=== PATIENT | female | born 1950 | race Caucasian/White ===

== ENCOUNTER → 2016-10-14 | Outpatient (CLI) | payer MEDICARE ==
[~2016-10-14] MED LIST: ASPI325T PO; ASPI81TA4 PO; ETOD40ERTA PO; METH2.5TA PO; NAPR220C PO; NAPR375T2 PO; NEUR300C PO; NORV5TAB PO; OMEP20TA7 OR; ONETAB35 PO; OYST500T OR; PERC5TAB8 OR; PRED15EL PO; PRED5TA PO; VALE250C2 PO; VIT D 2000 PO; ZOLO50TA OR; [UNRECOGNIZED DRUG - OTHER] PO; biotin PO
[2016-10-14 12:29] LABS: ANION GAP 10 MEQ/L (8-16); BLOOD UREA NITROGEN 16 MG/DL (7-18); CARBON DIOXIDE LEVEL 26 MEQ/L (21-32); CHLORIDE LEVEL 106 MEQ/L (98-107); CREATININE FOR GFR 0.89 MG/DL (0.55-1.02); GLOMERULAR FILTRATION RATE > 60.0 (>45); GLUCOSE, FASTING 98 MG/DL (80-110); SODIUM LEVEL 142 MEQ/L (136-145)
== END ==
LOC: M LAB 11:23
PROVIDERS: ATTEND Nurse Practitioner Family
DX: M81.0 Age-related osteoporosis without current pathological fracture (principal)

== ENCOUNTER → 2017-01-06 | Outpatient (CLI) | payer MEDICARE ==
[2017-01-06 10:25] LABS: ANION GAP 2 MEQ/L (8-16); BLOOD UREA NITROGEN 21 MG/DL (7-18); CALCIUM LEVEL 9.1 MG/DL (8.8-10.2); CARBON DIOXIDE LEVEL 35 MEQ/L (21-32); CHLORIDE LEVEL 105 MEQ/L (98-107); CHOLESTEROL LEVEL 217 MG/DL (<200); CREATININE FOR GFR 0.78 MG/DL (0.55-1.02); GLOMERULAR FILTRATION RATE > 60.0 (>45); GLUCOSE, FASTING 92 MG/DL (80-110); POTASSIUM SERUM 4.3 MEQ/L (3.5-5.1); SODIUM LEVEL 142 MEQ/L (136-145); TRIGLYCERIDES LEVEL 122 MG/DL (<150)
== END ==
LOC: M LAB 09:26
PROVIDERS: ATTEND Neuromusculoskeletal Medicine & OMM
DX: M81.0 Age-related osteoporosis without current pathological fracture (principal)

== ENCOUNTER 2017-01-13 09:14 | Outpatient (CLI) | payer MEDICARE ==
[~2017-01-13] VITALS: Ht 154.9 cm; Wt 51.3 kg
[2017-01-13] MEDS ORDERED: ZOLEDRONIC ACID 5 MG in APPROPRIATE DILUENT 1 EA IV ONE (10:00)
== END 2017-01-13 10:25 | disposition home or self-care (01) ==
LOC: M INFU 09:14
PROVIDERS: ATTEND Family Medicine
DX: M81.8 Other osteoporosis without current pathological fracture (principal); Z88.8 Allergy status to other drugs, medicaments and biological substances; Z88.5 Allergy status to narcotic agent; Z79.899 Other long term (current) drug therapy; Z87.891 Personal history of nicotine dependence
CPT/HCPCS: 96365; J3489

== ENCOUNTER → 2017-02-26 | Outpatient (CLI) | payer MEDICARE ==
--- NOTE | 2017-02-26 11:13 | REP ---
MRI right hand without contrast: History: Right hand tendonitis. The patient reports a bump and pain between the thumb and index finger. No known injury. Comparison right index finger radiographs are from February 18, 2016. 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 Technique: Axial, coronal, and sagittal imaging planes are utilized for T1, T2 and abgizn-ydgxxmd-kpgifqyl imaging. Sequences include spin-echo and gradient echo imaging with and without fat saturation. MRI findings: There is no MR evidence of a soft tissue mass involving the thenar soft tissues. There are subcortical cysts formed including both sides of the first carpometacarpal articulation, the distal navicula and the distal end of the second metacarpal. This is compatible with arthritis associated cyst formation. There is a small cyst in the distal end of the first metacarpal as well. Arthritic changes are seen in the IP, MCP and CUSTODIAL joint of the thumb and to a lesser extent in the PIP joints of the index and long digits. No vascular abnormality is seen. There is some degenerative widening of the navicular lunate consistent with degeneration of this ligament. Impression: No soft tissue mass seen. Arthritic changes in the wrist and hand. Signed by Arron Mo MD 02/26/2017 01:19 P
== END ==
LOC: M RAD 09:22
PROVIDERS: ATTEND Neuromusculoskeletal Medicine & OMM
DX: M77.8 Other enthesopathies, not elsewhere classified (principal)

== ENCOUNTER 2017-03-11 14:01 | Emergency (ER) | payer MEDICARE ==
[~2017-03-11] VITALS: Ht 154.9 cm; Wt 54.4 kg
[~2017-03-11 14:01] MED LIST changes: +ASPI81TA18 PO; -ASPI81TA4 PO; +NAPR-855 PO; -NAPR375T2 PO
[2017-03-11] MEDS ORDERED: tumeric (14:15)
[2017-03-11] MEDS ORDERED: ASPI81CH PO (14:15)
[2017-03-11] MEDS ORDERED: ASPIRIN 81 MG CHEW TABLET PO ONE (14:45)
[2017-03-11 15:25] LABS: BASO % 0.5 % (0.0-1.0); EOS # 0.2 K/mm3 (0.0-0.50); EOS % 2.5 % (0.0-3.0); LARGE UNSTAINED CELL # 0.2 K/mm3 (0.0-0.4); LARGE UNSTAINED CELL % 2.3 % (0.0-4.0); LYMPH # 2.8 K/mm3 (1.5-4.5); LYMPH % 31.1 % (24.0-44.0); MEAN CORPUSCULAR HEMOGLOBIN 33.3 pg (27.0-33.0); MEAN CORPUSCULAR HGB CONC 35.9 g/dl (32.0-36.5); MEAN CORPUSCULAR VOLUME 92.7 fl (80.0-96.0); MONO # 0.6 K/mm3 (0.0-0.8); MONO % 7.5 % (0.0-5.0); NEUTROPHILS # 4.6 K/mm3 (1.8-7.7); PLATELET COUNT, AUTOMATED 243 k/mm3 (150-450); RED CELL DISTRIBUTION WIDTH 12.2 % (11.5-14.5); WHITE BLOOD COUNT 8.2 K/mm3 (4.0-10.0)
[2017-03-11 15:36] LABS: ANION GAP 7 MEQ/L (8-16); BLOOD UREA NITROGEN 18 MG/DL (7-18); CALCIUM LEVEL 8.4 MG/DL (8.8-10.2); CARBON DIOXIDE LEVEL 28 MEQ/L (21-32); CHLORIDE LEVEL 105 MEQ/L (98-107); CREATININE FOR GFR 0.94 MG/DL (0.55-1.02); FREE T4 0.88 NG/DL (0.76-1.46); GLOMERULAR FILTRATION RATE > 60.0 (>45); GLUCOSE, FASTING 121 MG/DL (80-110); MAGNESIUM LEVEL 2.2 MG/DL (1.8-2.4); PHOSPHORUS LEVEL 2.1 MG/DL (2.5-4.9); POTASSIUM SERUM 3.7 MEQ/L (3.5-5.1); SODIUM LEVEL 140 MEQ/L (136-145)
--- NOTE | 2017-03-11 16:30 | REP ---
HISTORY: Chest pain. PRIORS: None. FINDINGS: The superior mediastinal structures are midline. The cardiac silhouette is unremarkable in size, shape and position. The diaphragmatic surfaces of the lungs are regular and the costophrenic angles are clear. The pulmonary riley are clear. The imaged osseous structures are intact. IMPRESSION: There is no acute cardiopulmonary disease. Signed by Tim Pierson DO 03/11/2017 04:37 P
[2017-03-11 21:35] VITALS: BP 120/84
--- NOTE | 2017-03-12 06:00 | ECGEPIP ---
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 RBBB NO PRIORS Electronically Signed On 03-12-2017 6:00:42 EDT by Salomon Lundy
--- NOTE | 2017-03-12 12:16 | ECGEPIP ---
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 RBBB SIMILAR TO PRIOR ON SAME DATE Electronically Signed On 03-12-2017 12:15:56 EDT by Salomon Lundy
== END 2017-03-11 22:00 | disposition home or self-care (01) ==
LOC: M ED 15:42
DX: R00.2 Palpitations (principal); M10.9 Gout, unspecified; M19.90 Unspecified osteoarthritis, unspecified site; Z87.891 Personal history of nicotine dependence; Z79.82 Long term (current) use of aspirin; Z79.899 Other long term (current) drug therapy; Z88.5 Allergy status to narcotic agent; Z88.8 Allergy status to other drugs, medicaments and biological substances

== ENCOUNTER 2017-03-15 08:28 | Outpatient (RCR) | payer MEDICARE ==
[~2017-03-15 08:28] MED LIST changes: +ASPI81CH PO; +tumeric
== END 2017-03-19 | disposition home or self-care (01) ==
LOC: M OT 08:28
PROVIDERS: ATTEND Neuromusculoskeletal Medicine & OMM
DX: M05.741 Rheumatoid arthritis with rheumatoid factor of right hand without organ or systems involvement (principal)
CPT/HCPCS: 97165; G8984; G8985

== ENCOUNTER 2017-03-26 11:59 | Outpatient (RCR) | payer MEDICARE | END 2017-04-19 | LOC: M OT 11:59 | PROVIDERS: ATTEND Neuromusculoskeletal Medicine & OMM | DX: M05.741 Rheumatoid arthritis with rheumatoid factor of right hand without organ or systems involvement (principal) | CPT/HCPCS: 97760; G8984; G8985; G8986 ==

== ENCOUNTER → 2018-05-04 | Outpatient (REF) | payer MEDICARE ==
[2018-05-04 13:51] LABS: TOTAL 25(OH) VITAMIN D 14.5 NG/ML (30.0-100.0)
[2018-05-04 13:58] LABS: ALBUMIN 4.3 GM/DL (3.2-5.2); ALBUMIN/GLOBULIN RATIO 1.34 (1.00-1.93); ALKALINE PHOSPHATASE 55 U/L (45-117); ALT/SGPT 41 U/L (12-78); ANION GAP 7 MEQ/L (8-16); AST/SGOT 21 U/L (7-37); BILIRUBIN,TOTAL 0.5 MG/DL (0.2-1.0); BLOOD UREA NITROGEN 15 MG/DL (7-18); CALCIUM LEVEL 9.4 MG/DL (8.8-10.2); CARBON DIOXIDE LEVEL 27 MEQ/L (21-32); CHLORIDE LEVEL 108 MEQ/L (98-107); CREATININE FOR GFR 0.88 MG/DL (0.55-1.30); GLOMERULAR FILTRATION RATE > 60.0 (>45); GLUCOSE, FASTING 92 MG/DL (70-100); POTASSIUM SERUM 4.2 MEQ/L (3.5-5.1); SODIUM LEVEL 142 MEQ/L (136-145); TOTAL PROTEIN 7.5 GM/DL (6.4-8.2)
== END ==
LOC: M SFHCPLAZ 11:01
DX: M81.0 Age-related osteoporosis without current pathological fracture (principal)
CPT/HCPCS: 80053

== ENCOUNTER 2018-05-30 10:07 | Outpatient (CLI) | payer MEDICARE ==
[2018-05-30] MEDS: ZOLEDRONIC ACID 5 MG in APPROPRIATE DILUENT 1 EA IV (10:50)
== END 2018-05-30 11:35 | disposition home or self-care (01) ==
LOC: M INFU 10:07
DX: M81.0 Age-related osteoporosis without current pathological fracture (principal); M12.9 Arthropathy, unspecified; Z90.710 Acquired absence of both cervix and uterus; Z88.8 Allergy status to other drugs, medicaments and biological substances
CPT/HCPCS: J3489

== ENCOUNTER → 2018-06-17 | Outpatient (CLI) | payer MEDICARE | LOC: M WHC 14:19 | DX: Z12.31 Encounter for screening mammogram for malignant neoplasm of breast (principal); N60.31 Fibrosclerosis of right breast; N60.32 Fibrosclerosis of left breast | CPT/HCPCS: 77067 ==

== ENCOUNTER → 2018-08-04 | Outpatient (CLI) | payer MEDICARE | LOC: M RAD 10:03 | DX: Z12.2 Encounter for screening for malignant neoplasm of respiratory organs (principal); J98.4 Other disorders of lung; Z87.891 Personal history of nicotine dependence | CPT/HCPCS: G0297 ==

== ENCOUNTER → 2018-11-23 | Outpatient (REF) | payer MEDICARE ==
[~2018-11-23] MED LIST changes: -ASPI81TA18 PO; +ASPI81TA52 PO; +METH2.5T48 PO; -METH2.5TA PO; +NAPR250T4 PO; +OMEG1CAP16 PO; +VITA200015 PO
== END ==
LOC: M LAB REF 12:35
PROVIDERS: ATTEND Ophthalmology
DX: H02.834 Dermatochalasis of left upper eyelid (principal); H02.831 Dermatochalasis of right upper eyelid

== ENCOUNTER 2019-03-27 07:56 | Emergency (ER) | payer MEDICARE ==
[~2019-03-27] VITALS: Ht 152.4 cm; Wt 66.1 kg
[~2019-03-27 07:56] MED LIST changes: +ASPI-1 PO; -ASPI325T PO; -ASPI81CH PO; +ASPI81CH49 PO; -PRED15EL PO; +PRED15SO PO
[2019-03-27 07:57] VITALS: BP 127/65
[2019-03-27] MEDS ORDERED: ICAPCAP2 (08:08)
[2019-03-27] MEDS ORDERED: ASPI-264 PO (08:08)
[2019-03-27] MEDS ORDERED: OYST1TAB (08:08)
--- NOTE | 2019-03-27 08:46 | REP ---
Left ankle series: Four views. History: Injury. Comparison left ankle radiographs are from the April 17, 2008. Findings: Four views of the left ankle demonstrate an intact ankle mortise. No fracture is visible. There is mild anterolateral soft tissue swelling. Mild plantar calcaneal spurring is noted. Impression: Heel spur. Anterolateral swelling. No fracture seen. Electronically Signed by Arron Mo MD 03/27/2019 09:33 A
== END 2019-03-27 09:35 | disposition home or self-care (01) ==
LOC: M ED 08:57
DX: M25.472 Effusion, left ankle (principal); W10.9XXA Fall (on) (from) unspecified stairs and steps, initial encounter; Y92.9 Unspecified place or not applicable; Y93.9 Activity, unspecified; M77.30 Calcaneal spur, unspecified foot; Z79.1 Long term (current) use of non-steroidal anti-inflammatories (NSAID); Z79.82 Long term (current) use of aspirin; Z79.899 Other long term (current) drug therapy; Z88.5 Allergy status to narcotic agent; Z88.8 Allergy status to other drugs, medicaments and biological substances

== ENCOUNTER → 2019-03-28 | Outpatient (REF) | payer MEDICARE ==
[~2019-03-28] MED LIST changes: +ASPI-264 PO; +ICAPCAP2; +OYST1TAB
== END ==
LOC: M SFHCPLAZ 17:42
PROVIDERS: ATTEND Dermatology
DX: L60.3 Nail dystrophy (principal)

== ENCOUNTER → 2019-04-25 | Outpatient (REF) | payer MEDICARE ==
[2019-04-25 13:30] LABS: BLOOD UREA NITROGEN 15 MG/DL (7-18); CALCIUM LEVEL 9.1 MG/DL (8.8-10.2); CARBON DIOXIDE LEVEL 28 MEQ/L (21-32); CHLORIDE LEVEL 108 MEQ/L (98-107); CREATININE FOR GFR 0.76 MG/DL (0.55-1.30); GLOMERULAR FILTRATION RATE > 60.0 (>45); GLUCOSE, FASTING 96 MG/DL (70-100); POTASSIUM SERUM 4.2 MEQ/L (3.5-5.1); SODIUM LEVEL 143 MEQ/L (136-145)
== END ==
LOC: M SFHCPLAZ 10:10
PROVIDERS: ATTEND Family Medicine
DX: M81.8 Other osteoporosis without current pathological fracture (principal)

== ENCOUNTER 2019-05-18 09:50 | Outpatient (RCR) | payer MEDICARE | END 2019-05-20 | LOC: M PT 09:50 | PROVIDERS: ATTEND Family Medicine | DX: S93.492D Sprain of other ligament of left ankle, subsequent encounter (principal) | CPT/HCPCS: 97032; 97110; 97162; G0283 ==

== ENCOUNTER 2019-05-30 14:39 | Outpatient (CLI) | payer MEDICARE ==
[~2019-05-30] VITALS: Ht 152.4 cm; Wt 66.0 kg
[2019-05-30 14:50] VITALS: BP 134/77
[2019-05-30] MEDS ORDERED: ZOLEDRONIC ACID 5 MG in APPROPRIATE DILUENT 1 EA IV ONE (15:00)
[2019-05-30] MEDS ORDERED: ASPI325T57 PO (15:31)
[2019-05-30] MEDS ORDERED: FLAX1CAP5 PO (15:33)
[2019-05-30] MEDS ORDERED: PRESCAP PO (15:35)
[2019-05-30] MEDS ORDERED: TUMERIC PO (15:40)
[2019-05-30] MEDS ORDERED: ZOLE5INJ IV (15:41)
[2019-05-30] MEDS ORDERED: AUGM0.05 TOP (15:42)
[2019-05-30 16:15] VITALS: BP 147/88
== END 2019-05-30 16:15 | disposition home or self-care (01) ==
LOC: M INFU 14:39
DX: M81.0 Age-related osteoporosis without current pathological fracture (principal)
CPT/HCPCS: 96365; J3489

== ENCOUNTER 2019-06-01 09:16 | Outpatient (RCR) | payer MEDICARE ==
[~2019-06-01 09:16] MED LIST changes: +ASPI325T57 PO; +AUGM0.05 TOP; +FLAX1CAP5 PO; +PRESCAP PO; +TUMERIC PO; +ZOLE5INJ IV
== END 2019-06-19 ==
LOC: M PT 09:16
PROVIDERS: ATTEND Family Medicine
DX: Z47.89 Encounter for other orthopedic aftercare (principal); S93.492D Sprain of other ligament of left ankle, subsequent encounter
CPT/HCPCS: 97110; 97530; G0283

== ENCOUNTER → 2019-07-07 | Outpatient (CLI) | payer MEDICARE ==
[2019-07-07 11:48] LABS: C REACTIVE PROTEIN QUANTITATIV 0.39 MG/DL (0.00-0.30); RHEUMATOID FACTOR QUANT 14.2 IU/ML (<15.0)
--- NOTE | 2019-07-07 14:15 | REP ---
REASON: Pain and arthritis. AP and lateral views were obtained bilaterally and compared to the prior examination of 09/08/2008. RIGHT HAND: Two views of right hand show marked asymmetric intradigital joint space narrowing with heavy marginal osteophytosis involving interphalangeal joint of the 1st digit, the DIP joints of all digits, particularly the 2nd and 3rd, along with the PIP joints of digits 4 and 5. All this has increased rather markedly from the prior exam. Chronic changes are also seen involving the wrist. There is no evidence of periarticular osteopenia, and there are no ciarra marginal erosions. IMPRESSION: Chronic changes, as described above. LEFT HAND: There is asymmetric intradigital joint space narrowing involving all intradigital joints in all digits, but particularly the interphalageal joint of the 1st digit and the distal interphalangeal joints of the 2nd and 3rd digits, more moderately involving the 5th. The proximal interphalangeal joint of the 4th digit is mostly involved when assessing the PIP joints. Chronic changes seen involving the wrist. The aforementioned findings have increased rather markedly compared to the prior exam. IMPRESSION: Advanced chronic changes, as described above. Electronically Signed by Tim Pierson DO 07/07/2019 04:17 P
== END ==
LOC: M LAB 10:36
PROVIDERS: ATTEND Internal Medicine Rheumatology
DX: M25.742 Osteophyte, left hand (principal); M25.741 Osteophyte, right hand; Z87.39 Personal history of other diseases of the musculoskeletal system and connective tissue

== ENCOUNTER → 2019-07-10 | Outpatient (REF) | payer MEDICARE | LOC: M SFHCPLAZ 09:59 | PROVIDERS: ATTEND Dermatology | DX: L57.0 Actinic keratosis (principal); L57.8 Other skin changes due to chronic exposure to nonionizing radiation ==

== ENCOUNTER → 2019-08-25 | Outpatient (CLI) | payer MEDICARE ==
[2019-08-25 17:35] LABS: BASO # 0.1 10^3/uL (0.0-0.2); BASO % 0.5 % (0.0-1.0); EOS # 0.3 10^3/uL (0.0-0.5); EOS % 2.8 % (0.0-3.0); HEMATOCRIT 44.7 % (36.0-47.0); HEMOGLOBIN 14.7 g/dl (12.0-15.5); LYMPH # 3.5 10^3/uL (1.5-5.0); LYMPH % 38.4 % (24.0-44.0); MEAN CORPUSCULAR HEMOGLOBIN 31.4 pg (27.0-33.0); MEAN CORPUSCULAR HGB CONC 32.9 g/dl (32.0-36.5); MEAN CORPUSCULAR VOLUME 95.5 fl (80.0-96.0); MONO # 0.8 10^3/uL (0.0-0.8); MONO % 8.7 % (0.0-5.0); NEUTROPHILS # 4.5 10^3/uL (1.5-8.5); NEUTROPHILS % 49.3 % (36.0-66.0); PLATELET COUNT, AUTOMATED 243 10^3/uL (150-450); RED BLOOD COUNT 4.68 10^6/uL (4.00-5.40); WHITE BLOOD COUNT 9.2 10^3/uL (4.0-10.0)
[2019-08-25 17:41] LABS: ALBUMIN 4.2 GM/DL (3.2-5.2); ALT/SGPT 39 U/L (12-78); BILIRUBIN,TOTAL 0.6 MG/DL (0.2-1.0); BLOOD UREA NITROGEN 12 MG/DL (7-18); CALCIUM LEVEL 9.6 MG/DL (8.8-10.2); CARBON DIOXIDE LEVEL 27 MEQ/L (21-32); CHLORIDE LEVEL 107 MEQ/L (98-107); CREATININE FOR GFR 0.94 MG/DL (0.55-1.30); FREE T4 0.85 NG/DL (0.76-1.46); GLOMERULAR FILTRATION RATE > 60.0 (>45); GLUCOSE, FASTING 90 MG/DL (70-100); POTASSIUM SERUM 4.1 MEQ/L (3.5-5.1); SODIUM LEVEL 141 MEQ/L (136-145); TOTAL PROTEIN 7.5 GM/DL (6.4-8.2)
== END ==
LOC: M PLALAB 12:45
PROVIDERS: ATTEND Family Medicine
DX: R22.1 Localized swelling, mass and lump, neck (principal); Z79.899 Other long term (current) drug therapy
CPT/HCPCS: 36415; 80053; 84439; 84443; 85025; G0463

== ENCOUNTER → 2019-08-31 | Outpatient (CLI) | payer MEDICARE | LOC: M LAB 10:39 | PROVIDERS: ATTEND Internal Medicine Rheumatology | DX: H04.123 Dry eye syndrome of bilateral lacrimal glands (principal) | CPT/HCPCS: 36415; 83520; 86038; 86225; 86255; G0463 ==

== ENCOUNTER → 2019-09-14 | Outpatient (CLI) | payer MEDICARE ==
[~2019-09-14] MED LIST changes: +ISOVUE-370 76% 100ML VIAL (Q9967) As Ordered ONE
--- NOTE | 2019-09-14 14:47 | REP ---
Clinical: Supraclavicular adenopathy. Technique: Axial contrast enhanced images from the thoracic inlet to the upper abdomen with coronal and sagittal re-formations. Comparison: 08/04/2018. Findings: Visualized portions of the thoracic inlet are normal and there is no evidence for associated adenopathy. The bilateral lung riley are well-aerated and clear. No consolidation. No nodule or mass lesion. No effusion. No pneumothorax. Tracheobronchial tree is patent. No axillary, hilar, or mediastinal adenopathy noted. Mediastinum demonstrates normal thoracic aorta, pulmonary vasculature and heart/pericardium. Surrounding musculoskeletal structures are intact. Impression: Normal contrast enhanced chest CT. Electronically Signed by Quinten Lemus MD 09/14/2019 02:39 P
== END ==
LOC: M RAD 14:04
PROVIDERS: ATTEND Family Medicine
DX: R22.1 Localized swelling, mass and lump, neck (principal)
CPT/HCPCS: 71260; Q9967

== ENCOUNTER → 2019-09-28 | Outpatient (CLI) | payer MEDICARE ==
[~2019-09-28] MED LIST changes: -ISOVUE-370 76% 100ML VIAL (Q9967) As Ordered ONE
--- NOTE | 2019-09-28 14:45 | REP ---
THYROID ULTRASOUND: Real-time sonographic evaluation of the thyroid performed. Right lobe measures 4.7 x 1.6 x 1.4 and left lobe 4.4 x 1.4 x 1.0 cm. Adjacent supraclavicular regions are also scanned as there are reportedly palpable lumps in those regions. No supraclavicular mass is seen. Tiny cyst in the mid right thyroid measures 3.0 mm and a cyst in the left lower pole measures 5.0 mm. IMPRESSION: No supraclavicular soft tissue mass identified sonographically. Tiny cyst in each lobe of thyroid with no solid nodule. Electronically Signed by Rj Montes De Oca MD 09/28/2019 05:44 P
== END ==
LOC: M RAD 13:21
PROVIDERS: ATTEND Family Medicine
DX: E04.1 Nontoxic single thyroid nodule (principal); R22.1 Localized swelling, mass and lump, neck

== ENCOUNTER → 2019-10-04 | Outpatient (CLI) | payer MEDICARE ==
[~2019-10-04] MED LIST changes: +ISOVUE-370 76% 100ML VIAL (Q9967) As Ordered ONE
--- NOTE | 2019-10-05 09:09 | REP ---
INDICATION: Neck swelling PROCEDURE: CT neck with contrast COMPARISON STUDIES: CT chest 09/14/2019 FINDINGS: Oropharynx, nasopharynx, hypopharynx and larynx appear unremarkable. No evidence of lymphadenopathy. Paranasal sinuses and mastoid air cells are clear. No discrete mass lesion, or evidence of infection. There is a calcific density at the right lung apex measures perhaps to 3 mm, may represent a calcified granuloma, is unchanged from comparison study CT chest 09/14/2019. IMPRESSION: No acute findings. No evidence of mass lesion. No evidence of focal infection. Electronically Signed by Joe Parks MD 10/05/2019 09:00 A
== END ==
LOC: M RAD 17:12
PROVIDERS: ATTEND Family Medicine
DX: R22.1 Localized swelling, mass and lump, neck (principal)
CPT/HCPCS: 70491; Q9967

== ENCOUNTER → 2019-11-03 | Outpatient (CLI) | payer MEDICARE ==
[~2019-11-03] MED LIST changes: -ISOVUE-370 76% 100ML VIAL (Q9967) As Ordered ONE
--- NOTE | 2019-11-03 11:30 | REPPI ---
Clinical: Pain. Technique: Neutral and frog lateral views of the left hip. Findings: Subtle increase sclerosis to the acetabular roof with joint space narrowing noted. No further arthritic changes are appreciated. No acute fracture dislocation. Impression: Essentially age-related findings. Electronically Signed by Quinten Lemus MD 11/03/2019 11:22 A
--- NOTE | 2019-11-03 11:32 | REPPI ---
Clinical: Pain. Technique: AP and frog lateral views of the left femur. Findings: Left hip demonstrates age-related changes with minimal joint space narrowing. Evidence for prior knee replacement. No fracture or dislocation. No significant osteoarthritic findings. Calcified phleboliths noted along the lateral aspect of the proximal thigh. Impression: Essentially age-appropriate examination. Left knee replacement. Electronically Signed by Quinten Lemus MD 11/03/2019 11:23 A
== END ==
LOC: M PLAIMG 11:04
PROVIDERS: ATTEND Family Medicine
DX: I87.8 Other specified disorders of veins (principal); M79.605 Pain in left leg; Z96.652 Presence of left artificial knee joint
CPT/HCPCS: 73502; 73552; G0463

== ENCOUNTER → 2020-02-23 | Outpatient (REF) | payer MEDICARE ==
[2020-02-23 13:57] LABS: HEMOGLOBIN 14.1 g/dl (12.0-15.5); MEAN CORPUSCULAR HEMOGLOBIN 32.6 pg (27.0-33.0); MEAN CORPUSCULAR HGB CONC 34.4 g/dl (32.0-36.5); MEAN CORPUSCULAR VOLUME 94.7 fl (80.0-96.0); PLATELET COUNT, AUTOMATED 253 10^3/uL (150-450); RED BLOOD COUNT 4.33 10^6/uL (4.00-5.40); WHITE BLOOD COUNT 7.7 10^3/uL (4.0-10.0)
[2020-02-23 14:04] LABS: H PYLORI QUALITATIVE IgG NEGATIVE (NEGATIVE)
== END ==
LOC: M SFHCPLAZ 11:19
PROVIDERS: ATTEND Family Medicine
DX: R68.81 Early satiety (principal); R06.00 Dyspnea, unspecified
CPT/HCPCS: 36415; 85027; 86677; G0463

== ENCOUNTER → 2020-04-26 | Outpatient (REF) | payer MEDICARE ==
[2020-06-12 04:16] LABS: BLOOD UREA NITROGEN 12 MG/DL (7-18); CARBON DIOXIDE LEVEL 29 MEQ/L (21-32); CHLORIDE LEVEL 108 MEQ/L (98-107); CREATININE FOR GFR 0.96 MG/DL (0.55-1.30); GLOMERULAR FILTRATION RATE > 60.0 (>45); GLUCOSE, FASTING 106 MG/DL (70-100); POTASSIUM SERUM 4.1 MEQ/L (3.5-5.1); SODIUM LEVEL 141 MEQ/L (136-145)
== END ==
LOC: M SFHCPLAZ 12:02
PROVIDERS: ATTEND Family Medicine
DX: I67.1 Cerebral aneurysm, nonruptured (principal)

== ENCOUNTER → 2020-06-25 | Outpatient (CLI) | payer MEDICARE ==
[~2020-06-25] MED LIST changes: +ISOVUE-370 76% 100ML VIAL As Ordered ONE
--- NOTE | 2020-06-25 11:08 | REPVR ---
PROCEDURE INFORMATION: Exam: CT Angiography Head With Contrast Exam date and time: 06/25/2020 9:40 AM Age: 69 years old Clinical indication: Condition or disease; Aneurysm, cerebral; Additional info: Cerebral aneurysm TECHNIQUE: Imaging protocol: Computed tomography angiography of the head with intravenous contrast. 3D rendering (Not supervised by radiologist): MIP and/or 3D reconstructed images were created by the technologist. Radiation optimization: All CT scans at this facility use at least one of these dose optimization techniques: automated exposure control; mA and/or kV adjustment per patient size (includes targeted exams where dose is matched to clinical indication); or iterative reconstruction. Contrast material: ISO 370; Contrast volume: 75 ml; Contrast route: INTRAVENOUS (IV); COMPARISON: Thyroid, ST head+neck US 09/28/2019 1:38 PM FINDINGS: ANTERIOR CIRCULATION: Right internal carotid artery: Unremarkable. Intracranial segment is patent with no significant stenosis. No aneurysm. Right middle cerebral artery: Unremarkable. No occlusion or significant stenosis. No aneurysm. Right anterior cerebral artery: Unremarkable. No occlusion or significant stenosis. No aneurysm. Left internal carotid artery: There is a 5 mm saccular aneurysm arising from the lateral margin of the right proximal to mid cavernous carotid artery. An additional tiny 2 mm aneurysm arises from the medial margin of the right proximal to mid cavernous segment. Left middle cerebral artery: Unremarkable. No occlusion or significant stenosis. No aneurysm. Left anterior cerebral artery: Unremarkable. No occlusion or significant stenosis. No aneurysm. POSTERIOR CIRCULATION: Right vertebral artery: Unremarkable. No occlusion or significant stenosis. No aneurysm. Left vertebral artery: Unremarkable. No occlusion or significant stenosis. No aneurysm. Basilar artery: Unremarkable. No occlusion or significant stenosis. No aneurysm. Right posterior cerebral artery: Unremarkable. No occlusion or significant stenosis. No aneurysm. Left posterior cerebral artery: Unremarkable. No occlusion or significant stenosis. No aneurysm. Brain: No definite mass, mass effect, or midline shift. Cerebral ventricles: Normal. No ventriculomegaly. Bones/joints: Unremarkable. No acute fracture. Soft tissues: Unremarkable. 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 Additional tiny 2 mm aneurysm arises from the medial margin. Electronically signed by: Margot Francisco On 06/25/2020 11:08:03 AM
== END ==
LOC: M RAD 08:51
PROVIDERS: ATTEND Family Medicine
DX: I72.0 Aneurysm of carotid artery (principal)
CPT/HCPCS: 70496; Q9967

== ENCOUNTER → 2021-04-07 | Outpatient (REF) | payer MEDICARE ==
[~2021-04-07] MED LIST changes: -ISOVUE-370 76% 100ML VIAL As Ordered ONE; +NAPR-849 PO; -NAPR250T4 PO
== END ==
LOC: M SFHCPLAZ 10:52
PROVIDERS: ATTEND Family Medicine
DX: Z13.1 Encounter for screening for diabetes mellitus (principal); Z13.220 Encounter for screening for lipoid disorders

== ENCOUNTER → 2021-04-14 | Outpatient (CLI) | payer MEDICARE ==
--- NOTE | 2021-04-14 12:05 | DEXAMM ---
INDICATION: M81.8 OTHER OSTEOPOROSIS. COMPARISON: Most recent comparison study is from April 10, 2019.. TECHNIQUE: Bone density was measured using dual-energy x-ray absorptionmetry (DEXA). FINDINGS: AP SPINE L1-L4 BMD 0.835 g/cm2 Young Adult T-Score -2.9 Age Matched Z-Score -1.2. LT FEMUR, TOTAL BMD 0.762 g/cm2 Young Adult T-Score -1.9 Age Matched Z-Score -0.5. LT NECK BMD 0.741 g/cm2 Young Adult T-Score -2.1 Age Matched Z-Score -0.5. RT FEMUR, TOTAL BMD 0.739 g/cm2 Young Adult T-Score -2.1 Age Matched Z-Score -0.7. RT NECK BMD 0.706 g/cm2 Young Adult T-Score -2.4 Age Matched Z-Score -0.7. IMPRESSION: There is osteoporosis of the spine. There is low bone density of the left hip. There is low bone density of the right hip. The density of the spine has decreased 6.1% since the initial exam on September 18, 2003. The density of the spine increased 1.8% since most recent exam on April 10, 2019. The density of the left hip has decreased 3.9% since initial exam on September 18, 2003. The density of the left hip has decreased 0.7% since most recent exam on April 10, 2019. The density of the right hip has decreased 10.6% since the initial exam on September 18, 2003. The density of the right hip has decreased 1.5% since the most recent exam on April 10, 2019. FOLLOW-UP: Recommendation for the next bone density exam: 2 years. <Electronically signed by Antelmo Mo > 04/14/21 [id number]
== END ==
LOC: M WHC 09:56
PROVIDERS: ATTEND Family Medicine
DX: M81.8 Other osteoporosis without current pathological fracture (principal); M85.851 Other specified disorders of bone density and structure, right thigh; M85.852 Other specified disorders of bone density and structure, left thigh

== ENCOUNTER 2021-04-18 07:50 | Outpatient (RCR) | payer MEDICARE | END 2021-04-19 | disposition still patient (30) | LOC: M PT 07:50 | PROVIDERS: ATTEND Family Medicine | DX: M54.31 Sciatica, right side (principal) ==

== ENCOUNTER → 2021-05-05 | Outpatient (CLI) | payer MEDICARE ==
--- NOTE | 2021-05-05 10:19 | REP ---
INDICATION: LUNG CANCER SCREENING- LABS AFTER. COMPARISON: Multiple the latest 09/14/[address] of the chest after intravenous contrast administration TECHNIQUE: Axial noncontrast images from the thoracic inlet to the upper abdomen using low-dose lung screening technique (LDCT). As per the protocol only lung window images were sent to the read station for interpretation. FINDINGS: There are no new abnormal nodules, masses, or opacities. Subtle areas of pleural thickening are again seen posteriorly in the left lower lobe. Once again, there is an incidental calcified granuloma in the right upper lobe. There are calcified lymph nodes status quo. The imaged upper abdomen and imaged osseous structures are grossly unchanged. IMPRESSION: Stable lung rads category 2 low-dose screening CT examination of the lungs. Follow-up is recommended as per the revised Fleischner society criteria. <Electronically signed by Tim Pierson > 05/05/21 [id number]
[2021-05-05 11:10] LABS: HEMOGLOBIN A1c 5.2 %
[2021-05-05 11:14] LABS: CHOLESTEROL RISK RATIO 5.547 (<5)
== END ==
LOC: M RAD 09:33
PROVIDERS: ATTEND Family Medicine
DX: Z13.1 Encounter for screening for diabetes mellitus (principal); Z13.220 Encounter for screening for lipoid disorders; Z12.2 Encounter for screening for malignant neoplasm of respiratory organs; R91.8 Other nonspecific abnormal finding of lung field; Z79.82 Long term (current) use of aspirin; Z79.899 Other long term (current) drug therapy

== ENCOUNTER → 2021-05-29 | Outpatient (CLI) | payer MEDICARE ==
[2021-05-29 11:34] LABS: BILIRUBIN,DIRECT 0.1 MG/DL (0.0-0.2); BILIRUBIN,TOTAL 0.5 MG/DL (0.2-1.0); CHOLESTEROL RISK RATIO 4.522 (<5); TOTAL PROTEIN 6.9 GM/DL (6.4-8.2)
== END ==
LOC: M LAB 09:54
PROVIDERS: ATTEND Family Medicine
DX: Z13.220 Encounter for screening for lipoid disorders (principal); Z79.899 Other long term (current) drug therapy

== ENCOUNTER → 2021-06-02 | Outpatient (CLI) | payer MEDICARE ==
--- NOTE | 2021-06-02 10:20 | REPMRS ---
Patient History The patient states she has not had a clinical breast exam in over a year. Family history of colorectal cancer at age 75 in father, breast cancer at age 40 in maternal cousin. Patient states no breast complaints today. Patient has signed MRS History Sheet. Digital Woman Screen Mammo: June 02, 2021 - Exam #: [id number] Bilateral CC and MLO view(s) were taken. Technologist: Giovanna Dukes, Technologist Prior study comparison: June 17, 2018, bilateral digital woman screen mammo performed at [facility]. December 25, 2015, bilateral digital mammo screening bilat, performed at [facility]. FINDINGS: There are scattered fibroglandular densities. Screening. Digital screening (2D) mammography was performed bilaterally in the CC and MLO projections. Additionally, breast tomosynthesis (3D mammography) was performed bilaterally in the CC and MLO projections. Todays exam was compared to the prior exam/exams. By history, the patient has no complaints of a palpable breast abnormality or other significant breast complaints. The breasts are unchanged in size and shape. There are no airam-soft tissue densities or spiculated masses. There is no internal architectural distortion. Once again, stable benign appearing calcifications are seen.There are no suspicious airam-calcific clusters. Skin thickening or nipple retraction is not present. IMPRESSION: BI-RADS Category 2- Benign Findings. There is no evidence of malignant alteration of the breasts. Followup examination recommended in one year. The Volpara volumetric breast density category is B, there are scattered areas of fibroglandular densities. This mammogram was read [facility],an FDA approved computer aided detection system for mammography. The lifetime Tyrer-Cuzick score is 4.3 % Negative x-ray reports should not delay surgical consultation if a dominant or clinically suspicious mass is present. Not all breast cancers can be identified by mammography. Therefore, we recommend that you continue to perform regular breast self-examination and physical examination and then promptly contact your physician of any concerns or changes. Adenosis and dense breasts may obscure an underlying neoplasm. Assessment: BI-RADS/ACR category 2 mammogram. Benign Findings. Recommendation Routine screening mammogram of both breasts in 1 year. Electronically Signed By: Tim Pierson DO 06/02/21 1014
== END ==
LOC: M WHC 09:21
PROVIDERS: ATTEND Family Medicine
DX: Z12.31 Encounter for screening mammogram for malignant neoplasm of breast (principal)

== ENCOUNTER → 2021-09-10 | Outpatient (CLI) | payer MEDICARE | LOC: M LABSMTC 11:10 | PROVIDERS: ATTEND Pediatrics | DX: Z20.822 Contact with and (suspected) exposure to COVID-19 (principal) | CPT/HCPCS: C9803; U0003 ==

== ENCOUNTER → 2022-03-19 | Outpatient (CLI) | payer MEDICARE | LOC: M RAD 10:26 | PROVIDERS: ATTEND Student in an Organized Health Care Education/Training Program | DX: M71.22 Synovial cyst of popliteal space [Baker], left knee (principal); M25.562 Pain in left knee ==

== ENCOUNTER → 2022-04-23 | Outpatient (CLI) | payer MEDICARE | LOC: M PLAIMG 15:08 | PROVIDERS: ATTEND Student in an Organized Health Care Education/Training Program | DX: M17.11 Unilateral primary osteoarthritis, right knee (principal); M19.042 Primary osteoarthritis, left hand ==

== ENCOUNTER → 2022-05-19 | Outpatient (CLI) | payer MEDICARE | LOC: M SOG 08:46 | PROVIDERS: ATTEND Orthopaedic Surgery Hand Surgery | DX: M19.031 Primary osteoarthritis, right wrist (principal); M19.032 Primary osteoarthritis, left wrist; G56.03 Carpal tunnel syndrome, bilateral upper limbs ==

== ENCOUNTER → 2022-05-21 | Outpatient (CLI) | payer MEDICARE | LOC: M SOG 08:38 | PROVIDERS: ATTEND Orthopaedic Surgery Adult Reconstructive Orthopaedic Surgery | DX: M25.561 Pain in right knee (principal); M17.12 Unilateral primary osteoarthritis, left knee ==

== ENCOUNTER → 2022-05-29 | Outpatient (CLI) | payer MEDICARE ==
[2022-05-29 13:48] LABS: HEMOGLOBIN A1c 5.2 %
[2022-05-29 13:49] LABS: ALBUMIN 3.7 GM/DL (3.2-5.2); ALT/SGPT 23 U/L (12-78); BILIRUBIN,TOTAL 0.5 MG/DL (0.2-1.0); BLOOD UREA NITROGEN 15 MG/DL (7-18); CARBON DIOXIDE LEVEL 28 MEQ/L (21-32); CHLORIDE LEVEL 109 MEQ/L (98-107); CHOLESTEROL LEVEL 211 MG/DL (<200); CHOLESTEROL RISK RATIO 3.767 (<5); CREATININE FOR GFR 0.76 MG/DL (0.55-1.30); GLOMERULAR FILTRATION RATE > 60.0 (>39); GLUCOSE, FASTING 85 MG/DL (70-100); HDL CHOLESTEROL 56 MG/DL (>40); LDL CHOLESTEROL 88 MG/DL (<100); NON-HDL-C 155 MG/DL; POTASSIUM SERUM 4.1 MEQ/L (3.5-5.1); SODIUM LEVEL 140 MEQ/L (136-145); TOTAL PROTEIN 6.3 GM/DL (6.4-8.2); TRIGLYCERIDES LEVEL 336 MG/DL (<150)
== END ==
LOC: M LAB 11:58
PROVIDERS: ATTEND Student in an Organized Health Care Education/Training Program
DX: I67.1 Cerebral aneurysm, nonruptured (principal); Z13.1 Encounter for screening for diabetes mellitus; Z79.899 Other long term (current) drug therapy

== ENCOUNTER → 2022-06-11 | Outpatient (CLI) | payer MEDICARE ==
[~2022-06-11] MED LIST changes: +ISOVUE-370 76% 100ML VIAL As Ordered ONE
[2022-06-11 11:18] LABS: CHOLESTEROL RISK RATIO 3.775 (<5)
== END ==
LOC: M RAD 09:32
PROVIDERS: ATTEND Student in an Organized Health Care Education/Training Program
DX: I67.1 Cerebral aneurysm, nonruptured (principal); Z12.2 Encounter for screening for malignant neoplasm of respiratory organs
CPT/HCPCS: 36415; 70496; 71271; 80061; Q9967

== ENCOUNTER → 2022-10-13 | Outpatient (CLI) | payer MEDICARE ==
[~2022-10-13] MED LIST changes: -ISOVUE-370 76% 100ML VIAL As Ordered ONE
[2022-10-13 09:35] LABS: ALBUMIN 4.2 G/DL (3.2-5.2); BILIRUBIN,DIRECT 0.3 MG/DL (<0.4); BILIRUBIN,TOTAL 0.9 MG/DL (0.3-1.2); TOTAL PROTEIN 6.7 G/DL (5.7-8.2)
== END ==
LOC: M LAB 08:02
PROVIDERS: ATTEND Student in an Organized Health Care Education/Training Program
DX: E78.2 Mixed hyperlipidemia (principal)

== ENCOUNTER → 2022-10-13 | Outpatient (CLI) | payer MEDICARE | LOC: M RAD 07:52 | PROVIDERS: ATTEND Student in an Organized Health Care Education/Training Program | DX: N28.1 Cyst of kidney, acquired (principal); I10 Essential (primary) hypertension ==

== ENCOUNTER → 2022-10-22 | Outpatient (CLI) | payer MEDICARE | LOC: M RAD 08:04 | PROVIDERS: ATTEND Student in an Organized Health Care Education/Training Program | DX: R06.02 Shortness of breath (principal) | CPT/HCPCS: 71046; 78582; A9540; A9567 ==

== ENCOUNTER → 2022-10-29 | Outpatient (CLI) | payer MEDICARE ==
[2022-10-29 09:04] LABS: CHOLESTEROL RISK RATIO 2.61 (<5); HDL CHOLESTEROL 58.4 MG/DL (>40); LDL CHOLESTEROL 52.4 MG/DL (<100)
== END ==
LOC: M LAB 08:08
PROVIDERS: ATTEND Student in an Organized Health Care Education/Training Program
DX: E78.2 Mixed hyperlipidemia (principal)

== ENCOUNTER → 2022-10-29 | Outpatient (CLI) | payer MEDICARE ==
[2022-10-29 09:02] LABS: BLOOD UREA NITROGEN 13 MG/DL (9-23); CALCIUM LEVEL 9.4 MG/DL (8.3-10.6); CARBON DIOXIDE LEVEL 27 MMOL/L (20-31); CHLORIDE LEVEL 108 MMOL/L (98-107); CREATININE FOR GFR 0.77 MG/DL (0.55-1.30); GLOMERULAR FILTRATION RATE > 60.0 (>39); GLUCOSE, FASTING 99 MG/DL (74-106); POTASSIUM SERUM 3.9 MMOL/L (3.5-5.1); SODIUM LEVEL 142 MMOL/L (136-145)
== END ==
LOC: M LAB 08:06
PROVIDERS: ATTEND Student in an Organized Health Care Education/Training Program
DX: R06.02 Shortness of breath (principal)

== ENCOUNTER → 2022-10-30 | Outpatient (CLI) | payer MEDICARE ==
[~2022-10-30] MED LIST changes: +ISOVUE-370 76% 100ML VIAL As Ordered ONE
== END ==
LOC: M RAD 07:50
PROVIDERS: ATTEND Student in an Organized Health Care Education/Training Program
DX: I67.1 Cerebral aneurysm, nonruptured (principal)
CPT/HCPCS: 70496; Q9967

== ENCOUNTER → 2023-01-08 | Outpatient (CLI) | payer MEDICARE ==
[~2023-01-08] MED LIST changes: -ISOVUE-370 76% 100ML VIAL As Ordered ONE
== END ==
LOC: M RAD 07:49
PROVIDERS: ATTEND Student in an Organized Health Care Education/Training Program
DX: M79.671 Pain in right foot (principal)

== ENCOUNTER → 2023-01-15 | Outpatient (CLI) | payer MEDICARE | LOC: M PLAIMG 11:18 | PROVIDERS: ATTEND Student in an Organized Health Care Education/Training Program | DX: M77.31 Calcaneal spur, right foot (principal) ==

== ENCOUNTER → 2023-06-09 | Outpatient (REF) | payer MEDICARE | LOC: M LAB REF 12:35 | PROVIDERS: ATTEND Ophthalmology | DX: C44.1191 Basal cell carcinoma of skin of left upper eyelid, including canthus (principal) ==

== ENCOUNTER → 2023-07-02 | Outpatient (CLI) | payer MEDICARE | LOC: M WHC 10:38 | PROVIDERS: ATTEND Student in an Organized Health Care Education/Training Program | DX: M81.0 Age-related osteoporosis without current pathological fracture (principal) ==

== ENCOUNTER → 2023-08-05 | Outpatient (CLI) | payer MEDICARE | LOC: M RAD 09:55 | PROVIDERS: ATTEND Student in an Organized Health Care Education/Training Program | DX: Z12.2 Encounter for screening for malignant neoplasm of respiratory organs (principal); F17.211 Nicotine dependence, cigarettes, in remission ==

== ENCOUNTER → 2023-08-09 | Outpatient (REF) | payer MEDICARE | LOC: M SFHCDERM 10:29 | PROVIDERS: ATTEND Physician Assistant | DX: L60.3 Nail dystrophy (principal) ==

== ENCOUNTER → 2023-09-24 | Outpatient (REF) | payer MEDICARE | LOC: M SFHCPLAZ 13:05 | PROVIDERS: ATTEND Student in an Organized Health Care Education/Training Program | DX: R10.9 Unspecified abdominal pain (principal) ==

== ENCOUNTER → 2023-10-06 | Outpatient (CLI) | payer MEDICARE ==
[2023-10-06 10:31] LABS: ALBUMIN 4.1 G/DL (3.2-5.2); ALKALINE PHOSPHATASE 39 U/L (46-116); ALT/SGPT 30 U/L (7.0-40); AST/SGOT 20 U/L (<34); BILIRUBIN,TOTAL 0.7 MG/DL (0.3-1.2); BLOOD UREA NITROGEN 12 MG/DL (9-23); CALCIUM LEVEL 9.7 MG/DL (8.3-10.6); CARBON DIOXIDE LEVEL 27 MMOL/L (20-31); CHLORIDE LEVEL 107 MMOL/L (98-107); CHOLESTEROL LEVEL 169 MG/DL (<200); CHOLESTEROL RISK RATIO 2.83 (<5); CREATININE FOR GFR 0.66 MG/DL (0.55-1.30); GLOMERULAR FILTRATION RATE > 60.0 (>39); GLUCOSE, FASTING 105 MG/DL (74-106); HDL CHOLESTEROL 59.7 MG/DL (>40); LDL CHOLESTEROL 81.5 MG/DL (<100); NON-HDL-C 109.3 MG/DL; POTASSIUM SERUM 3.7 MMOL/L (3.5-5.1); SODIUM LEVEL 141 MMOL/L (136-145); TOTAL PROTEIN 6.8 G/DL (5.7-8.2); TRIGLYCERIDES LEVEL 139 MG/DL (<150)
[2023-10-06 10:33] LABS: TOTAL 25(OH) VITAMIN D 17.7 NG/ML (20.0-100.0)
[2023-10-06 10:39] LABS: HEMOGLOBIN A1c 5.3 % (4.0-6.0)
== END ==
LOC: M RAD 09:33
PROVIDERS: ATTEND Student in an Organized Health Care Education/Training Program
DX: N28.1 Cyst of kidney, acquired (principal); E79.2 Myoadenylate deaminase deficiency; I10 Essential (primary) hypertension; Z13.1 Encounter for screening for diabetes mellitus; M81.0 Age-related osteoporosis without current pathological fracture; R10.9 Unspecified abdominal pain; Z79.899 Other long term (current) drug therapy

== ENCOUNTER → 2023-11-05 | Outpatient (CLI) | payer MEDICARE | LOC: M WHC 11:30 | PROVIDERS: ATTEND Student in an Organized Health Care Education/Training Program | DX: Z12.31 Encounter for screening mammogram for malignant neoplasm of breast (principal) ==

== ENCOUNTER → 2023-11-05 | Outpatient (REF) | payer MEDICARE | LOC: M SFHCWAGY 17:08 | PROVIDERS: ATTEND Nurse Practitioner Family | DX: N39.3 Stress incontinence (female) (male) (principal) ==

== ENCOUNTER → 2024-02-07 | Outpatient (CLI) | payer MEDICARE ==
[2024-02-07 10:21] LABS: BLOOD UREA NITROGEN 11 MG/DL (9-23); CARBON DIOXIDE LEVEL 27 MMOL/L (20-31); CHLORIDE LEVEL 109 MMOL/L (98-107); CREATININE FOR GFR 0.93 MG/DL (0.55-1.30); GLOMERULAR FILTRATION RATE > 60.0 (>39); GLUCOSE, FASTING 105 MG/DL (74-106); POTASSIUM SERUM 4.4 MMOL/L (3.5-5.1); SODIUM LEVEL 142 MMOL/L (136-145)
[2024-02-07 10:32] LABS: THYROID STIMULATING HORMONE 1.367 uIU/ML (0.55-4.78); TOTAL 25(OH) VITAMIN D 21.9 NG/ML (20.0-100.0)
== END ==
LOC: M LAB 08:43
PROVIDERS: ATTEND Student in an Organized Health Care Education/Training Program
DX: E55.9 Vitamin D deficiency, unspecified (principal); R63.5 Abnormal weight gain

== ENCOUNTER → 2024-02-21 | Outpatient (CLI) | payer MEDICARE ==
[~2024-02-21] MED LIST changes: +E-Z-GAS II EFFERVESCENT PACKET (SODIUM BICARB./CITRIC ACID/SIMETHICONE) As Ordered ONE; +E-Z-HD 98% w/w 340GM SUSP BTL As Ordered ONE; +E-Z-PAQUE 96% w/w SUSP 176GM BTL As Ordered ONE
== END ==
LOC: M RAD 09:15
PROVIDERS: ATTEND Student in an Organized Health Care Education/Training Program
DX: R13.19 Other dysphagia (principal)

== ENCOUNTER 2024-06-04 13:03 | Emergency (ER) | payer MEDICARE ==
[~2024-06-04] VITALS: Ht 149.9 cm; Wt 60.4 kg
[~2024-06-04 13:03] MED LIST changes: -E-Z-GAS II EFFERVESCENT PACKET (SODIUM BICARB./CITRIC ACID/SIMETHICONE) As Ordered ONE; -E-Z-HD 98% w/w 340GM SUSP BTL As Ordered ONE; -E-Z-PAQUE 96% w/w SUSP 176GM BTL As Ordered ONE
[2024-06-04] MEDS ORDERED: AMLO1TAB25 (13:13)
[2024-06-04] MEDS ORDERED: PRED20TA (13:13)
[2024-06-04] MEDS ORDERED: BUPR-69 (13:13)
[2024-06-04] MEDS ORDERED: ALEV220T22 PO (13:13)
[2024-06-04] MEDS ORDERED: ATOR40TA75 (13:13)
[2024-06-04 15:56] VITALS: BP 129/66; TEMP 97.4
[2024-06-04 17:24] VITALS: O2SAT 96
[2024-06-04] MEDS: traMADol 50 MG TAB PO ONE (17:24)
[2024-06-04] MEDS: traMADol 50 MG TAB (HOME DOSE PACK) PO ONE (18:32)
== END 2024-06-04 18:44 | disposition home or self-care (01) ==
LOC: M ED 13:06
DX: S80.01XA Contusion of right knee, initial encounter (principal); M17.11 Unilateral primary osteoarthritis, right knee; W19.XXXA Unspecified fall, initial encounter; Y92.830 Public park as the place of occurrence of the external cause; Y93.9 Activity, unspecified; Y99.9 Unspecified external cause status; M25.461 Effusion, right knee; Z79.82 Long term (current) use of aspirin; Z79.899 Other long term (current) drug therapy

== ENCOUNTER → 2024-06-26 | Outpatient (CLI) | payer MEDICARE ==
[~2024-06-26] MED LIST changes: +ALEV220T22 PO; +AMLO1TAB25; +ATOR40TA75; +BUPR-69; +PRED20TA
== END ==
LOC: M SOG 07:24
PROVIDERS: ATTEND Physician Assistant
DX: M25.561 Pain in right knee (principal)

== ENCOUNTER → 2024-08-09 | Outpatient (CLI) | payer MEDICARE ==
[~2024-08-09] MED LIST changes: -AUGM0.05 TOP; +AUGM0.0511 TOP
[2024-08-14 16:17] LABS: ANA SCREEN, IFA NEGATIVE (NEGATIVE)
== END ==
LOC: M LAB 15:14
PROVIDERS: ATTEND Physician Assistant
DX: R21 Rash and other nonspecific skin eruption (principal)

== ENCOUNTER → 2024-08-10 | Outpatient (CLI) | payer MEDICARE | LOC: M PLALAB 11:57 | PROVIDERS: ATTEND Physician Assistant | DX: M25.571 Pain in right ankle and joints of right foot (principal) ==

== ENCOUNTER → 2024-08-10 | Outpatient (CLI) | payer MEDICARE | LOC: M SOG 07:53 | PROVIDERS: ATTEND Physician Assistant | DX: M25.571 Pain in right ankle and joints of right foot (principal) ==

== ENCOUNTER → 2024-10-30 | Outpatient (CLI) | payer MEDICARE ==
[2024-10-30 11:07] LABS: HEMATOCRIT 44.1 % (36.0-47.0); HEMOGLOBIN 14.3 g/dl (12.0-15.5); MEAN CORPUSCULAR HEMOGLOBIN 29.7 pg (27.0-33.0); MEAN CORPUSCULAR HGB CONC 32.4 g/dl (32.0-36.5); MEAN CORPUSCULAR VOLUME 91.7 fl (80.0-96.0); PLATELET COUNT, AUTOMATED 225 10^3/uL (150-450); RED BLOOD COUNT 4.81 10^6/uL (4.00-5.40); WHITE BLOOD COUNT 9.6 10^3/uL (4.0-10.0)
[2024-10-30 11:48] LABS: HEMOGLOBIN A1c 5.4 % (4.0-6.0)
[2024-10-30 12:00] LABS: ALKALINE PHOSPHATASE 71 U/L (35-104); ALT/SGPT 23 U/L (7.0-40); AST/SGOT 20 U/L (<34); BILIRUBIN,DIRECT 0.2 MG/DL (<0.4); BILIRUBIN,TOTAL 0.8 MG/DL (0.3-1.2); BLOOD UREA NITROGEN 12 MG/DL (9-23); CALCIUM LEVEL 9.4 MG/DL (8.3-10.6); CARBON DIOXIDE LEVEL 30 MMOL/L (20-31); CHLORIDE LEVEL 107 MMOL/L (98-107); CHOLESTEROL LEVEL 119 MG/DL (<200); CHOLESTEROL RISK RATIO 2.58 (<5); CREATININE FOR GFR 0.86 MG/DL (0.55-1.30); GLOMERULAR FILTRATION RATE > 60.0 (>39); GLUCOSE, FASTING 94 MG/DL (74-106); HDL CHOLESTEROL 46.1 MG/DL (>40); LDL CHOLESTEROL 44.3 MG/DL (<100); NON-HDL-C 72.9 MG/DL; PHOSPHORUS LEVEL 4.1 MG/DL (2.4-5.1); POTASSIUM SERUM 4.3 MMOL/L (3.5-5.1); SODIUM LEVEL 147 MMOL/L (136-145); TOTAL 25(OH) VITAMIN D 32.9 NG/ML (20.0-100.0); TRIGLYCERIDES LEVEL 143 MG/DL (<150)
== END ==
LOC: M PLALAB 08:23
PROVIDERS: ATTEND Student in an Organized Health Care Education/Training Program
DX: E55.9 Vitamin D deficiency, unspecified (principal); E78.00 Pure hypercholesterolemia, unspecified

== ENCOUNTER → 2024-11-20 | Outpatient (CLI) | payer MEDICARE ==
[~2024-11-20] MED LIST changes: +ISOVUE-370 76% 100ML VIAL As Ordered ONE
== END ==
LOC: M RAD 09:26
PROVIDERS: ATTEND Student in an Organized Health Care Education/Training Program
DX: I72.0 Aneurysm of carotid artery (principal)
CPT/HCPCS: 70496; Q9967

== ENCOUNTER → 2025-01-11 | Outpatient (CLI) | payer MEDICARE ==
[~2025-01-11] MED LIST changes: -ISOVUE-370 76% 100ML VIAL As Ordered ONE
== END ==
LOC: M PLARAD 10:48
PROVIDERS: ATTEND Psychiatry & Neurology Neurology
DX: I72.0 Aneurysm of carotid artery (principal); I65.23 Occlusion and stenosis of bilateral carotid arteries

== ENCOUNTER → 2025-06-08 | Outpatient (CLI) | payer MEDICARE ==
[2025-06-08 10:55] LABS: ALT/SGPT 23.0 U/L (7.0-40); AST/SGOT 22.0 U/L (<34); CALCIUM LEVEL 9.0 MG/DL (8.3-10.6); CARBON DIOXIDE LEVEL 28.0 MMOL/L (20-31); CHLORIDE LEVEL 109.0 MMOL/L (98-107); CHOLESTEROL LEVEL 137.0 MG/DL (<200); CHOLESTEROL RISK RATIO 2.87 (<5); CREATININE FOR GFR 0.81 MG/DL (0.55-1.30); GLOMERULAR FILTRATION RATE 76.6 (>39); LDL CHOLESTEROL 56.9 MG/DL (<100); NON-HDL-C 89.3 MG/DL; POTASSIUM SERUM 4.0 MMOL/L (3.5-5.1); SODIUM LEVEL 141.0 MMOL/L (136-145); TRIGLYCERIDES LEVEL 162.0 MG/DL (<150)
== END ==
LOC: M LAB 08:15
PROVIDERS: ATTEND Student in an Organized Health Care Education/Training Program
DX: E78.2 Mixed hyperlipidemia (principal); E55.9 Vitamin D deficiency, unspecified; I10 Essential (primary) hypertension

== ENCOUNTER → 2025-06-15 | Outpatient (CLI) | payer MEDICARE ==
[2025-06-15 13:00] LABS: ALT/SGPT 28.0 U/L (7.0-40); AST/SGOT 24.0 U/L (<34)
== END ==
LOC: M PLALAB 08:24
PROVIDERS: ATTEND Physician Assistant
DX: Z79.899 Other long term (current) drug therapy (principal)

== ENCOUNTER → 2025-08-15 | Outpatient (CLI) | payer MEDICARE | LOC: M WHC 11:26 | PROVIDERS: ATTEND Family Medicine | DX: M81.0 Age-related osteoporosis without current pathological fracture (principal); M54.40 Lumbago with sciatica, unspecified side; Z53.9 Procedure and treatment not carried out, unspecified reason ==

== ENCOUNTER → 2025-08-15 | Outpatient (CLI) | payer MEDICARE | LOC: M PLALAB 11:41 | DX: M54.40 Lumbago with sciatica, unspecified side (principal); M51.361 Other intervertebral disc degeneration, lumbar region with lower extremity pain only; M43.16 Spondylolisthesis, lumbar region ==

== ENCOUNTER → 2025-09-03 | Outpatient (CLI) | payer MEDICARE | LOC: M WHC 10:43 | DX: M81.0 Age-related osteoporosis without current pathological fracture (principal) ==